=== PATIENT | male | born 1955 | race Caucasian/White ===

== ENCOUNTER 2020-06-18 09:35 | Inpatient (IN) | payer MEDICARE ==
[~2020-06-18] VITALS: Ht 177.8 cm; Wt 72.6 kg
--- NOTE | 2020-06-18 09:55 | NUR ---
pt rec'd to er found on the street confused homeless c/o pain left wrist xray done labs drawn and ua sent to lab pt covid swab done eatting lunch calm and quite
[2020-06-18 10:20] LABS: BASOPHILS % (AUTO) 0.8 % (0.0-2.0); EOSINOPHILS % (AUTO) 2.4 % (0.0-6.0); HEMATOCRIT 41 % (39-51); HEMOGLOBIN 13.5 g/dL (13.5-17.5); LYMPHOCYTES # (AUTO) 1.1 /CMM (0.8-4.8); LYMPHOCYTES % (AUTO) 20.5 % (20.0-44.0); MEAN CORPUSCULAR HGB CONC 33 g/dl (31.0-36.0); MEAN CORPUSCULAR VOLUME 95 fL (80-96); MONOCYTES # (AUTO) 0.4 /CMM (0.1-1.30); MONOCYTES % (AUTO) 7.5 % (2.0-12.0); NEUTROPHILS # (AUTO) 3.8 /CMM (1.8-8.9); NEUTROPHILS % (AUTO) 68.8 % (43.0-81.0); PLATELET COUNT (AUTO) 170 /CMM (150-450); WHITE BLOOD COUNT (AUTO) 5.6 K/uL (4.3-11.0)
[2020-06-18 10:38] LABS: BILIRUBIN,URINE NEGATIVE (NEGATIVE); COLOR,URINE YELLOW (YELLOW); LEUKOCYTE ESTERASE ,URINE NEGATIVE (NEGATIVE); NITRITE, URINE NEGATIVE (NEGATIVE); PH,URINE 8.5 (5.0-8.0); PROTEIN,URINE NEGATIVE (NEGATIVE); UGLUCOSE NEGATIVE (NEGATIVE); UROBILINOGEN,URINE 0.2 EU/dL (0.2)
[2020-06-18 10:38] LABS: ALANINE AMINOTRANSFERASE 29 U/L (12-78); ALBUMIN 3.4 g/dL (3.4-5.0); ALCOHOL, BLOOD < 3 mg/dL (0-0); ALKALINE PHOSPHATASE 90 U/L (46-116); ASPARTATE AMINOTRANSFERASE 16 U/L (15-37); BILIRUBIN,DIRECT 0.1 mg/dL (0.0-0.2); BILIRUBIN,TOTAL 0.3 mg/dL (0.2-1.0); CALCIUM, SERUM 9.2 mg/dL (8.5-10.1); CARBON DIOXIDE 29 mmol/L (21-32); CHLORIDE 105 mmol/L (98-107); CREATININE 0.7 mg/dL (0.6-1.3); GLUCOSE 88 mg/dL (74-106); POTASSIUM 4.1 mmol/L (3.5-5.1); SODIUM SERUM 141 mmol/L (136-145); TOTAL PROTEIN, SERUM 6.6 g/dL (6.4-8.2); UREA NITROGEN, BLOOD 14 mg/dL (7-18)
[2020-06-18 10:42] LABS: ACETAMINOPHEN < 10 ug/ml (10-30)
[2020-06-18 10:46] LABS: THYROID STIMULATING HORMONE 1.017 uIU/mL (0.358-3.74)
--- NOTE | 2020-06-18 12:31 | NUR ---
ROOM GIVEN 213-2
[2020-06-18] MEDS ORDERED: HYDR50CA PO (12:42)
[2020-06-18] MEDS ORDERED: RISP2TAB5 PO (12:42)
[2020-06-18] MEDS ORDERED: MAGNESIUM HYDROXIDE 30 ML UDC PO PRN (13:30)
[2020-06-18] MEDS ORDERED: LORAZEPAM 0.5 MG TABLET PO PRN (13:30)
[2020-06-18] MEDS ORDERED: BLOOD SUGAR DIAGNOSTIC 1 EACH STRIP IN ONE (13:30)
[2020-06-18] MEDS ORDERED: MAG HYDROX/AL HYDROX/SIMETH 30 ML UDC PO PRN (13:30)
--- NOTE | 2020-06-18 13:30 | NUR ---
ROD MILL TENDER NOTE- 64 Y/O MALE PT BROUGHT TO GPS [facility]IA [employer] FOR 5150 DTO AFTER BEING BROUGHT TO ED BY POLICE. PT WAS AT A COFFEE PLACE AND BOTHERING PATRONS. WHEN POLICE CAME, PT AGGRESSIVE DISORGANIZED AND CLEARLY UNABLE TO CARE FOR SELF AND A THREAT TO OTHERS. HOLD WRITTEN AND PT BROUGHT TO UNIT. ON FACE TO FACE ASSESSMENT, PT PRESENTS DISORGANIZED, WITH GARBLED INCOHERENT SPEECH AT TIMES, LABILE BUT DIRECTABLE,. PT DIRTY DISHEVELED AND DELUSIONAL. PT A POOR HISTORIAN AND MOST OF HX PULLED FROM ED RECORD. PT HAS NKA, NO MEDICAL PROBLEMS NOTED, WRIST XR FOR LEFT WRIST PAIN IS WNL, CXR - WNL, LABS UNREMARKABLE. PT REFUSED SKIN CHECK, FLU AND PNA VACCINES , PHOTOS, ACCU CHECK, MRSA SWAB AND VS. DR QUINONES AWARE OF ADMISSION AND RADIOGRAPHER TALIA ON UNIT SAW PT. REORIENTATION NEEDED. REDIRECTION NEEDED. NEEDS ATTENDED.
--- NOTE | 2020-06-18 13:59 | NUR ---
Asif HERR) in the unit and made aware of the admission and seen pt.
[2020-06-18] MEDS: NICOTINE PATCH (21MG) 21 MG PATCH.TD24 TD SCH (18:06)
--- NOTE | 2020-06-18 21:00 | NUR ---
Mr. Estrada is at the Nursing Station and requesting a pen. Gave him to pencils and explained to him about the protocol here, we don't give out pens. his face turned red and then he yelled out "I want a pen, I have my rights" he was hard starring at me ( the nurse ) asked him to go back to his room . he went to the end of the hallway and sat at a bedside table with paper and pencil and was writing . call made to MD QUINONES for a one time order if needed . Lucinda CARTY ordered 1 X. Offered Ambien or Ativan at 2200, suggested he go to lie down. Refused offer of medication stating those are not the medications he takes, "I take risperidol and vistaril".
[2020-06-18] MEDS ORDERED: OLANZAPINE 10 MG VIAL IM ONE (21:30)
[2020-06-19] MEDS: ZOLPIDEM TARTRATE 5 MG TABLET PO PRN ×2 (00:34→22:40)
[2020-06-19] MEDS ORDERED: OLANZAPINE 10 MG VIAL IM ONE (02:00)
--- NOTE | 2020-06-19 02:00 | NUR ---
Mr. Estrada is at the Nursing Station speech garbles and spoken in a whisper. Mr. Estrada is asking for his check "I know the mail came in". Explain to him it is 2AM no mail delivery would come this early. His voice tone escalating to yelling and he was angry, told him that I was going to call security to please go sit down ."Go call security." Offered his PO Ativan with an explanation of the medication. Adamantly refused the po medication. he yelled at his nurse and said he told me that he didn't want it already. He walked away from the nursing station and then came back insisting he wanted his check. he was loud with the yelling and leaning toward the nurse, Security called . He was not yelling at us as fiercely then. He just kept talking incoherently about the check and his rights. Zyprexa given IM and effective within 1 hour, he ambulated the halls for 30 minutes then went to bed. I continued to monitor him q 15 minutes, he refused Blood pressure to be taken
--- NOTE | 2020-06-19 05:40 | NUR ---
MR. BELCHER IS AWAKE AND ALERT. REFUSING HIS AM LAB DRAWS. SITTING IN A CHAIR OUTSIDE HIS ROOM AT A TABLE WRITING . SEEN UP AND WALKING STEADY ON HIS LEGS. SLEPT 2- 3 HOURS LAST NIGHT
[2020-06-19] MEDS: NICOTINE PATCH (21MG) 21 MG PATCH.TD24 TD SCH (08:58)
--- NOTE | 2020-06-19 08:59 | NUR ---
RN NOTE:PATIENT C/O ANXITY MDICATED WITH ATIVAN 1MG PO X1 WILL CONTINUE TO MONITOR . Addendum: 06/19/20 at 1154 by SONY HERRERA patient refused ATIVAN 1MG.
[2020-06-19] MEDS ORDERED: OLANZAPINE 10 MG VIAL IM STA (10:01)
--- NOTE | 2020-06-19 11:01 | NUR ---
RN-CO: PATIENT REFUSED LAB FOR 3 X. PT IS UNPREDICTABLE AND NON REDIRECTABLE.
--- NOTE | 2020-06-19 11:13 | NUR ---
Patient started to get angry and assaultive toward staff ,yelling and talking to himself loud .Offered patient Ativan to calm down but she refused ,tried redirect but patient not following directions .Dr. Uriarte notified with new order Zyprexa 10mg IM and gave injection at 10:13 ,patient voluntarily accept injection no physical hold ,patient refused vital signs q15 minutes x1 hour ,no SOB noted .Will continue to monitor patient safety .
[2020-06-19] MEDS: risperiDONE-M 0.5 MG TAB.RAPDIS PO SCH (16:15)
[2020-06-19] MEDS ORDERED: NICOTINE PATCH (21MG) 21 MG PATCH.TD24 TD SCH (18:00)
[2020-06-19] MEDS: hydrOXYzine PAMOATE 25 MG CAPSULE PO PRN (19:54)
--- NOTE | 2020-06-19 19:54 | NUR ---
GPS RN NOTES: PATIENT AGITATED, RESTLESS, RAMBLING, PACING. VISTARIL 25MG/1TAB GIVEN PO PRN ORDERED. WILL CONTINUE TO MONITOR.
[2020-06-19] MEDS: DIVALPROEX SODIUM 250 MG TABLET.DR PO SCH (21:00)
--- NOTE | 2020-06-20 06:51 | NUR ---
GPS RN CLOSING NOTES: PATIENT AWAKE ALERT AND ORIENTED X1. WEEKLY SKIN ASSESSMENT DONE AND CHARTED, PICTURES TAKEN AND PLACED IN PATIENT CHART. PATIENT SLEPT 5HOURS THIS SHIFT. NO S/S OF DISTRESS. RESPIRATION EVEN AND UNLABORED WITH EQUAL RISE AND FALL OF THE CHEST ON ROOM AIR. ALL PATIENT CARE NEEDS MET ANTICIPATED. WILL CONTINUE TO MONITOR FOR SAFETY, MOOD AND BEHAVIOR AND ENDORSE TO AM SHIFT.
[2020-06-20] MEDS: NICOTINE PATCH (21MG) 21 MG PATCH.TD24 TD SCH (08:13)
[2020-06-20] MEDS: hydrOXYzine PAMOATE 25 MG CAPSULE PO PRN ×2 (08:14→21:35)
[2020-06-20] MEDS: risperiDONE-M 0.5 MG TAB.RAPDIS PO SCH ×3 (08:14→16:30)
[2020-06-20] MEDS: DIVALPROEX SODIUM 250 MG TABLET.DR PO SCH ×2 (08:14→08:21)
--- NOTE | 2020-06-20 08:21 | NUR ---
RN NOTE: MEDICATION REFUSAL PT REFUSED AM DEPAKOTE. EDUCATED PT RE IMPORTANCE OF MEDICATION COMPLIANCE. PT CONT'D TO REFUSE X 3. VISTARIL PRN ADMINISTERED FOR AGITATION
--- NOTE | 2020-06-20 16:30 | NUR ---
RN NOTE: MEDICATION REFUSAL PT REFUSED 1700 RISPERDAL. EDUCATED PT RE IMPORTANCE OF MEDICAION COMPLIANCE. PT CONT'D TO REFUSE X 3.
--- NOTE | 2020-06-20 21:35 | NUR ---
GPS-RN NOTES: PATIENT IS ANXIOUS. VISTARIL 25MG PO GIVEN ORDERED. WILL CONTINUE TO MONITOR FOR PATIENT'S SAFETY.
[2020-06-20] MEDS: ZOLPIDEM TARTRATE 5 MG TABLET PO PRN (23:38)
--- NOTE | 2020-06-20 23:38 | NUR ---
GPS-RN NOTES: INSOMNIA PATIENT UNABLE TO SLEEP. ADMINISTERED AMBIEN 5MG PO ORDERED. WILL CONTINUE TO MONITOR FOR PATIENT'S SAFETY.
[2020-06-21] MEDS: NICOTINE PATCH (21MG) 21 MG PATCH.TD24 TD SCH (08:32)
[2020-06-21] MEDS: risperiDONE-M 0.5 MG TAB.RAPDIS PO SCH ×2 (08:33→16:42)
[2020-06-21] MEDS: hydrOXYzine PAMOATE 25 MG CAPSULE PO PRN (08:33)
--- NOTE | 2020-06-21 16:10 | NUR ---
Initial Discharge Plan: Pt is currently homeless and states that he would like to be discharged to a placement. SW will work with the pt and the MD regarding appropriate discharge planning. SW will form a safe and proper discharge.
--- NOTE | 2020-06-21 16:42 | NUR ---
RN NOTE: MEDICATION REFUSAL PT REFUSED 1700 RISPERDAL. PT STATES, "I ONLY TAKE IT ONCE A DAY". EDUCATED PT RE IMPORTANCE OF MEDICATION COMPLIANCE. PT CONT'D TO REFUSE X 3.
[2020-06-21] MEDS: ZOLPIDEM TARTRATE 5 MG TABLET PO PRN (21:56)
--- NOTE | 2020-06-21 21:56 | NUR ---
GPS-RN NOTES: INSOMNIA PATIENT UNABLE TO SLEEP. ADMINISTERED AMBIEN 5MG PO ORDERED. WILL CONTINUE TO MONITOR FOR PATIENT'S SAFETY.
[2020-06-22] MEDS: risperiDONE-M 0.5 MG TAB.RAPDIS PO SCH ×2 (08:50→21:17)
[2020-06-22] MEDS: NICOTINE PATCH (21MG) 21 MG PATCH.TD24 TD SCH (08:50)
[2020-06-22] MEDS ORDERED: risperiDONE-M 0.5 MG TAB.RAPDIS PO SCH (10:00)
[2020-06-22] MEDS: hydrOXYzine PAMOATE 25 MG CAPSULE PO PRN (10:02)
--- NOTE | 2020-06-22 10:03 | NUR ---
RN NOTE: AGITATION PT EXHIBITING INCREASED AGITATION. YELLING IN HALLWAY. VISTARIL ADMINISTERED
--- NOTE | 2020-06-22 10:57 | NUR ---
Probable Cause Hearing: Pts [phone] hold was upheld for grave disability.
[2020-06-22] MEDS ORDERED: OLANZAPINE 10 MG VIAL IM STA (11:54)
[2020-06-22] MEDS ORDERED: LORAZEPAM INJ 2 MG/ML VIAL IM STA (11:57)
--- NOTE | 2020-06-22 12:05 | NUR ---
RN NOTE: EMERGENCY INJECTION PT POSTURING TOWARDS NURSING STAFF. UNPREDICTABLE BEHAVIOR. UNABLE TO BE REDIRECTED. TELEPHONE ORDER FROM DR. QUINONES FOR ZYPREXA 10MG AND ATIVAN 1MG IM STAT.
--- NOTE | 2020-06-22 12:20 | NUR ---
RN NOTE: AGGRESSIVE BX AT 12:05 PT BECAME AGITATED AND IRRITABLE. BEGAN TO POSTURE TOWARDS STAFF.PT BECAME ANGRY AND HOSTILE. SHOUTING AND EXPOSING SELF IN HALLWAY. PT UNABLE TO BED REDIRECTED AND BECAME MORE TRIGGERED WITH INCREASED AGGRESSION WITH REDIRECTION AND REORIENTATION. PT RESPONDING TO INTERNAL STIMULI AND PACING HALLWAYS. ORDER FROM DR. QUINONES ZYPREXA 10MG AND ATIVAN 1MG IM STAT. IM ADMINISTERED TO RIGHT GLUTEUS KRISTIN AT 12:20. CLOSELY MONITORED PT AFTER IM ADMINISTRATION. NO ADVERSE S/SX NOTED.
--- NOTE | 2020-06-22 14:44 | NUR ---
RN NOTE: NO CURRENT AGGRESSIVE BX NOTED. PT CONTINUES TO PACE THROUGHOUT THE HALLWAY. CONTINUES TO BE DIFFICULT TO REDIRECT AND REORIENT
--- NOTE | 2020-06-22 15:34 | NUR ---
RN NOTE: PT SLEEPING. NO RESPIRATORY DISTRESS NOTED. RESPIRATIONS 17, EQUAL AND UNLABORED.
[2020-06-22] MEDS: TEMAZEPAM 15 MG CAPSULE PO PRN (21:17)
--- NOTE | 2020-06-23 06:19 | NUR ---
fast food server notes pt slept after Restoril given last night then woke up still confused, disorganized, rambling , unpredictable , refusing to have shower and assist to clean him. Pt still needs re-direction. No signs of any distress noted. Will continue Q 15 minutes monitoring for safety and behavior. will endorse to am nurse for continuity of care.
[2020-06-23] MEDS: risperiDONE-M 0.5 MG TAB.RAPDIS PO SCH ×3 (08:18→21:39)
[2020-06-23] MEDS: NICOTINE PATCH (21MG) 21 MG PATCH.TD24 TD SCH (08:18)
--- NOTE | 2020-06-23 14:53 | NUR ---
GPS/RN-NOTES NOTED PATIENT PACING IN THE HALLWAY TALKING TO SELF, OFFERED VISTARIL PRN BUT PATIENT REFUSED.
--- NOTE | 2020-06-23 21:35 | NUR ---
GPS-RN NOTES: REFUSED BY PATIENT RESTORIL 15MG PO. WASTED IN THE OMNICELL WITNESSED BY ANOTHER RN. MEDICATION WASTED ON MED DISPOSAL
[2020-06-24] MEDS: risperiDONE-M 0.5 MG TAB.RAPDIS PO SCH ×2 (08:29→20:02)
[2020-06-24] MEDS: NICOTINE PATCH (21MG) 21 MG PATCH.TD24 TD SCH (08:30)
--- NOTE | 2020-06-24 11:48 | NUR ---
Pt. is responding to internal stimuli, pt. talks to self loud, screaming and yelling. Pt. agreed for an injection. Dr. Uriarte notified and ordered Zyprexa 10 mg IM and Ativan 1 mg IM.
[2020-06-24] MEDS ORDERED: LORAZEPAM INJ 2 MG/ML VIAL IM ONE (12:00)
[2020-06-24] MEDS ORDERED: OLANZAPINE 10 MG VIAL IM ONE (12:00)
--- NOTE | 2020-06-24 12:04 | NUR ---
IM meds given and pt. was not resistive and cooperative.
[2020-06-25] MEDS: hydrOXYzine PAMOATE 25 MG CAPSULE PO PRN ×2 (01:13→15:06)
--- NOTE | 2020-06-25 06:33 | NUR ---
RN NOTES: REFUSED AM LABS PT. REFUSED AM LABS ENCOURAGED X3, PT. STRONGLY REFUSED ,RISKS AND BENFITS EXPLINED AND PT. BEHAVIOR VERY UNCOOPERATIVE, ANXIOUS, UNPREDICTABLE,WILL CONTINUE TO MONITOR.
[2020-06-25] MEDS: risperiDONE-M 0.5 MG TAB.RAPDIS PO SCH ×2 (08:06→20:27)
[2020-06-25] MEDS: NICOTINE PATCH (21MG) 21 MG PATCH.TD24 TD SCH (08:06)
[2020-06-25 20:23] VITALS: BP 94/54
[2020-06-26] MEDS: hydrOXYzine PAMOATE 25 MG CAPSULE PO PRN (00:20)
--- NOTE | 2020-06-26 00:23 | NUR ---
RN NOTES: ANXIETY PT. C/O FEELING ANXIOUS HYPERVERBAL PACING IN ROOM VISTARIL 25 MG PO PRN GIVEN PER PT. REQUEST ,WILL CONTINUE TO MONITOR.
[2020-06-26] MEDS: risperiDONE-M 0.5 MG TAB.RAPDIS PO SCH ×3 (08:08→21:18)
[2020-06-26] MEDS: NICOTINE PATCH (21MG) 21 MG PATCH.TD24 TD SCH (08:08)
--- NOTE | 2020-06-26 21:51 | NUR ---
GPS-RN NOTES: MEDICATION COMPLIANCE PATIENT REFUSED TO TAKE RISPERDAL-M SCHEDULED FOR TONIGHT. EDUCATED PATIENT REGARDING MEDICATION COMPLIANCE BUT PATIENT CONTINUED TO REFUSE. PATIENT BECAME AGITATED AND VERBALLY ABUSIVE TOWARDS STAFF. WILL CONTINUE TO MONITOR.
--- NOTE | 2020-06-26 22:00 | NUR ---
GPS-RN NOTES: PATIENT REQUESTED FOR VISTARIL, PULLED OUT MEDICATION BUT PATIENT REFUSED. PATIENT STATED "NO, I DON'T NEED IT". WILL CONTINUE TO MONITOR.
[2020-06-26] MEDS: TEMAZEPAM 15 MG CAPSULE PO PRN (22:01)
[2020-06-26] MEDS ORDERED: LORAZEPAM INJ 2 MG/ML VIAL IM ONE (22:30)
[2020-06-26] MEDS ORDERED: HALOPERIDOL LACTATE INJ 5 MG/ML VIAL IM ONE (22:30)
[2020-06-26] MEDS ORDERED: diphenhydrAMINE HCL 50 MG/ML VIAL IM ONE (22:30)
--- NOTE | 2020-06-26 22:30 | NUR ---
GPS-RN NOTES: CHEMICAL RESTRAINT PATIENT WAS AGGRESSIVE AND AGITATED. BEGAN TO POSTURE TOWARDS NURSING STAFF AND PSYCH MD, DR DONIS. PATIENT UNABLE TO REDIRECT. PATIENT IS RESPONDING TO INTERNAL STIMULI AND PACING HALLWAYS. DR. DONIS ORDERED ATIVAN 2MG IM X ONE, BENADRYL 25MG IM X ONE, HALDOL 5MG IM X ONE. ALL ORDERS NOTED AND CARRIED OUT. IM ADMINISTERED TO RIGHT/LEFT GLUTEUS KRISTIN AT 22:40. WILL CONTINUE TO MONITOR PATIENT CLOSELY AFTER IM ADMINISTRATION. NO ADVERSE SIDE EFFECT NOTED.
[2020-06-27] MEDS: NICOTINE PATCH (21MG) 21 MG PATCH.TD24 TD SCH (08:19)
[2020-06-27] MEDS: risperiDONE-M 0.5 MG TAB.RAPDIS PO SCH ×3 (08:19→17:05)
[2020-06-27] MEDS ORDERED: LORAZEPAM INJ 2 MG/ML VIAL IM STA (08:37)
[2020-06-27] MEDS ORDERED: OLANZAPINE 10 MG VIAL IM STA (08:37)
--- NOTE | 2020-06-27 09:02 | NUR ---
RN NOTE: EMERGENCY INJECTION. PT POSTURING TOWARDS STAFF. AGITATED AND IRRITABLE. UNABLE TO BE REDIRECTED. UNPREDICTABLE. PACING AND RAMBLING. EMERGENCY IM INJECTION OF ZYPREXA 10MG AND ATIVAN 1MG ORDERED. PT VOLUNTARILY ACCEPTED INJECTION. ADMINISTERED IN RIGHT GLUTEUS WITHOUT COMPLICATION. WILL CONT TO MONITOR PT PER PROTOCOL
--- NOTE | 2020-06-27 09:04 | NUR ---
SNF Referral: NASRIN faxed a referral to [facility] with attn to IVET and [place] to the fax number: [phone].
--- NOTE | 2020-06-27 10:00 | NUR ---
SNF Contact: IVET ([phone]) from [facility] contacted the SW and stated that the pt will not be accepted because the Medicare coverage has not been eligible since 09/21/2019.
[2020-06-27] MEDS: risperiDONE 1 MG TABLET PO SCH (21:01)
[2020-06-27] MEDS: TEMAZEPAM 15 MG CAPSULE PO PRN (22:02)
--- NOTE | 2020-06-27 22:02 | NUR ---
GPS-RN NOTES: INSOMNIA PATIENT C/O INABILITY TO SLEEP. ADMINISTERED RESTORIL 15MG PO ORDERED. WILL CONTINUE TO MONITOR.
[2020-06-27] MEDS: ACETAMINOPHEN 325 MG TABLET PO PRN (23:33)
--- NOTE | 2020-06-27 23:34 | NUR ---
GPS-RN NOTES: PATIENT C/O LOWER BACK PAIN AND REQUESTED FOR TYLENOL. ADMINISTERED TYLENOL 650MG PO ORDERED. WILL CONTINUE TO REASSESS.
[2020-06-28] MEDS: risperiDONE-M 0.5 MG TAB.RAPDIS PO SCH ×3 (08:19→17:00)
[2020-06-28] MEDS: NICOTINE PATCH (21MG) 21 MG PATCH.TD24 TD SCH (08:27)
--- NOTE | 2020-06-28 17:19 | NUR ---
RN NOTE: MEDICATION REFUSAL PT REFUSED ALL AFTERNOON MEDICATIONS EXCEPT FOR FLOMAX. EDUCATED PT REGARDING IMPORTANCE OF MEDICATION COMPLIANCE. PT CONTINUED TO REFUSE X 3. DR. BUCHANAN MADE AWARE. WILL CONTINUE TO MONITOR.
[2020-06-28] MEDS: risperiDONE 1 MG TABLET PO SCH (22:00)
[2020-06-28] MEDS ORDERED: TRAZODONE 50 MG TABLET PO SCH (22:00)
[2020-06-29] MEDS: risperiDONE 1 MG TABLET PO SCH ×3 (02:18→21:33)
[2020-06-29] MEDS: ACETAMINOPHEN 325 MG TABLET PO PRN ×3 (08:45→23:35)
[2020-06-29] MEDS: NICOTINE PATCH (21MG) 21 MG PATCH.TD24 TD SCH (08:45)
[2020-06-29] MEDS: risperiDONE-M 0.5 MG TAB.RAPDIS PO SCH (09:00)
[2020-06-29] MEDS ORDERED: diphenhydrAMINE HCL 50 MG/ML VIAL IM STA (09:05)
[2020-06-29] MEDS ORDERED: OLANZAPINE 10 MG VIAL IM STA (09:05)
--- NOTE | 2020-06-29 09:07 | NUR ---
RN NOTE- PT REFUSING AM RX, LABILE, ESCALATING, POSTURING. DR QUINONES NOTIFIED. ZYPREXA 10 MG AND BENADRYL 25 MG ORDERED IM STAT. COMPLIED.
--- NOTE | 2020-06-29 09:20 | NUR ---
RN NOTE: EMERGENCY IM PT REFUSED AM RISPERDAL. EDUCATED PT RE IMPORTANCE OF MEDICATION COMPLIANCE. PT CONT'D TO REFUSE X 3. PT BEGAN POSTURING TOWARD STAFF. SCREAMING AND YELLING. PT IS PARANOID AND DELUSIONAL. THREATENING TO GABINO STAFF. PT CONT'D TO POSTURE TOWARDS STAFF. UNABLE TO BE REDIRECTED. TELEPHONE ORDER FROM DR. QUINONES. ORDER FOR EMERGENCY IM OF BENADRYL 25 MG AND ZYPREXA 10MG. IM ADMINISTERED TO LEFT GLUTEUS WITHOUT COMPLICATION. WILL CONT TO MONITOR EFFECTIVENESS.
--- NOTE | 2020-06-29 10:30 | NUR ---
RN NOT RX EFFECTIVE. PT CALM. RESTING QUIETLY.
[2020-06-29] MEDS ORDERED: diphenhydrAMINE HCL 50 MG CAPSULE PO PRN (11:30)
[2020-06-29] MEDS: hydrOXYzine PAMOATE 25 MG CAPSULE PO PRN (22:19)
--- NOTE | 2020-06-29 22:19 | NUR ---
GPS-RN NOTES: ANXIETY PATIENT IS ANXIOUS AND RESTLESS. ADMINISTERED VISTARIL 25MG PO ORDERED PER PATIENT'S REQUEST. WILL CONTINUE TO MONITOR FOR PATIENT'S SAFETY.
--- NOTE | 2020-06-29 23:36 | NUR ---
GPS-RN NOTES: LEFT HAND PAIN PATIENT C/O PAIN ON HIS LEFT HAND. PT REQUESTED FOR TYLENOL. ADMINISTERED ACETAMINOPHEN 650MG PO ORDERED. WILL CONTINUE TO REASSESS.
[2020-06-30] MEDS: risperiDONE 1 MG TABLET PO SCH ×3 (08:13→21:31)
[2020-06-30] MEDS: NICOTINE PATCH (21MG) 21 MG PATCH.TD24 TD SCH (08:13)
--- NOTE | 2020-06-30 20:00 | NUR ---
RN NOTES: REFUSED VITAL SIGNS PT. REFUSED VITAL SIGNS ENCOURAGED X3, PT. STRONGLY REFUSED ,RISKS AND BENFITS EXPLINED AND PT. BEHAVIOR VERY UNCOOPERATIVE, ANXIOUS, UNPREDICTABLE,WILL CONTINUE TO MONITOR.
[2020-06-30] MEDS: hydrOXYzine PAMOATE 25 MG CAPSULE PO PRN (23:35)
--- NOTE | 2020-06-30 23:35 | NUR ---
RN NOTES: ANXIETY PATIENT C/O ANXIOUS AND RESTLESS PACING IN HALLWAY. ADMINISTERED VISTARIL 25MG PO ORDERED PER PATIENT'S REQUEST. WILL CONTINUE TO MONITOR FOR PATIENT'S SAFETY.
[2020-07-01] MEDS: risperiDONE 1 MG TABLET PO SCH (08:18)
[2020-07-01] MEDS: NICOTINE PATCH (21MG) 21 MG PATCH.TD24 TD SCH (08:18)
--- NOTE | 2020-07-01 09:01 | NUR ---
RN NOTE- PT A BIT BETTER THIS MORNING THAN PREVIOUSLY NOTED. INTERACTIVE DISORGANIZED RAMBLING SPEECH BUT BETTER AT MAKING NEEDS KNOWN AND LESS LABILE. MED COMPLIANT, HYPERGRAPHIA STILL CIONTINUES W RAMBLING NOTES TURNED INTO STAFF. DIRECTABLE DENIES ALL
--- NOTE | 2020-07-01 11:43 | NUR ---
Dr. Uriarte gave an order to D/C hold and D/C to [facility] and to follow up with psych and medical doctors. Pt. to continue same meds including prn.
--- NOTE | 2020-07-01 11:58 | NUR ---
Dr. Azevedo made aware of the discharge and reconciled the meds.
--- NOTE | 2020-07-01 12:21 | NUR ---
Discharge Note: Pt will be discharged to [facility] located at [address] [place] [id number]; ([phone]) to 4B. Pt will be transported via [facility] at 2:30PM. There is no one to notify regarding the pts discharge. Upon discharge, the pt appears to be in a dysphoric mood and presented with a congruent affect. Pt appears to be alert and oriented x3 (time, place, self). Pt denies both suicidal and homicidal ideation as well as auditory and visual hallucinations. Pt appears to be ambulatory with an unsteady gait. Pt appears to be well groomed and appropriately dressed. SW provided patient with the 2019 [facility] Program list. SW provided patient with a copy of the [facility] homeless directory which provides information on locations for hot meals, sack lunches, food pantries, and showers. NASRIN provided an additional list of mental health clinics: [facility] [address] [place] [address] ([phone]); [facility] [address] [place] [address] ([phone]); a list of medical clinics; [facility] [address] [facility] [address], [place]. [place], ; [facility] [address] [facility] NASRIN Provided [facility] [address] [place] [address]: ([phone]). Patient was provided with a brief substance abuse intervention and referred to the following substance abuse programs: [facility]stance Abuse Self-helpline ([phone]); [facility] [address] [place] [address] ([phone]); [facility] [address] [facility] [address] ([phone]); [facility] ([phone]); [facility] ([phone]); [facility] ([phone]); [facility] ([phone]). Pt will continue to be under the care of psychiatrist, Dr. Larson, located at [address] [place] [address]; . Pt will be under the care of cognos bi administrator, Dr. Toure, located at [address] [place] [address]; . The homeless waiver, choice of vendor form and multidisciplinary exit care form were done, printed, signed, and given to the patient.
--- NOTE | 2020-07-01 15:20 | NUR ---
SUB ASSEMBLY TEAM WORKER NOTE- PT DC AT THIS TIME TO [facility]IA [facility],. PT IS ALERT ORIENTED TO PERSON PLACE. CONFUSED GARBLED SPEECH PRESENT. REFUSES VACCINES, REFUSES VS AND FACILITY ACCEPTING PT WITHOUT COVID TEST. PT SKIN INTACT. BELONGINGS RETURNED TO PT. ASSISTED OFF UNIT WITH AMBULANCE STAFF.
== END 2020-07-01 15:25 | DRG 885 ==
LOC: ER 09:39 → GPS 12:51
PROVIDERS: ADMIT Psychiatry & Neurology Psychiatry
DX: F20.0 Paranoid schizophrenia (principal); F29 Unspecified psychosis not due to a substance or known physiological condition; F41.9 Anxiety disorder, unspecified; Z79.899 Other long term (current) drug therapy; M25.532 Pain in left wrist
CPT/HCPCS: 36415; 71045-TC; 73130-TC; 80048-TC; 80076-TC; 84443-TC; 85025-TC; 87081-TC; C9803; G0480; J1200; J1630; J2060; J3490; J7030; Q0177